=== PATIENT | male | born 1995 | race Two or more races ===

== ENCOUNTER 2016-03-29 01:59 | Emergency (ER) | payer OTHER ==
[2016-03-29 02:07] VITALS: TEMP 98.4
--- NOTE | 2016-03-29 02:14 | EDPHY ---
H & P Stated Complaint: rectal pain Time Seen by Provider: 03/29/16 02:11 HPI/ROS: HPI The patient presents with rectal pain which has been present throughout the course of the day, however woke him from sleep tonight. The pain began after having a hard small bowel movement this morning. It is described as a throbbing sensation without any radiation. It has been constant. He does not have any rectal bleeding. He has a history of an anal fissure which was treated in [facility], initially with some sort of ointment and then with what sounds like a sphincterotomy a year and half ago. He has not had any recurrence of his symptoms. REVIEW OF SYSTEMS Constitutional: No fever, no chills. Gastrointestinal: No abdominal pain, no vomiting. Genitourinary: No hematuria. Musculoskeletal: No back pain. Skin: No rashes. Neurological: No headache. PMHx: History of anal fissure Soc Hx: College student, from [facility] PHYSICAL General Appearance: Alert, no distress Eyes: Pupils equal and round no pallor or injection ENT, Mouth: Mucous membranes moist Respiratory: Breathing comfortably Cardiovascular: Regular rate and rhythm Gastrointestinal: Abdomen is soft and non-tender, no masses, bowel sounds normal Rectal: External hemorrhoids are palpable with no obvious fissure, however severe pain during rectal exam Neurological: A&O, moves all extremities Skin: Warm and dry, no rashes Musculoskeletal: Neck is supple non tender Extremities: symmetrical, full range of motion Psychiatric: Patient is oriented X 3, there is no agitation Source: Patient Exam Limitations: No limitations - Personal History Current Tetanus Diphtheria and Acellular Pertussis (TDAP): Yes - Medical/Surgical History Hx Asthma: Yes Hx Chronic Respiratory Disease: No Hx Diabetes: No Hx Cardiac Disease: No Hx Renal Disease: No Hx Cirrhosis: No Hx Alcoholism: No Hx HIV/AIDS: No Hx Splenectomy or Spleen Trauma: No Other PMH: Anal fissure, Asthma - Social History Smoking Status: Light smoker Constitutional: Initial Vital Signs Temperature (C) 36.9 C 03/29/16 02:03 Heart Rate 87 03/29/16 02:03 Respiratory Rate 20 03/29/16 02:03 Blood Pressure 89/43 L 03/29/16 02:03 O2 Sat (%) 92 03/29/16 02:03 O2 Delivery Mode Room Air Allergies/Adverse Reactions: No Known Allergies Allergy (Unverified 03/29/16 02:02) Home Medications: Medication Instructions Recorded Amoxicillin/Clavulanate Pot 875 mg PO BID 10 Days 08/01/13 [Augmentin 875 mg tab] Hydrocodone/APAP 5/325 [[place] 1 - 2 tab PO Q4 #13 tab 08/01/13 5/325 (RX)] Acetaminophen [Tylenol ES 500 mg 500 mg PO Q6 PRN #30 tab 03/29/16 (*)] Nitroglycerin [Nitro-Bid 2% Tube 0.2 applic RC BID #1 ointtube 03/29/16 (*)] Medical Decision Making Differential Diagnosis: This is a 20-year-old male with history of anal fissure status post sphincterotomy who presents from home with severe rectal pain after a hard bowel movement this morning. On exam, he is very tender on rectal exam with external hemorrhoids. He does not have any areas of fluctuance of his rectum. Differential diagnosis includes anal fissure, external hemorrhoids, thrombosed hemorrhoid, doubt perirectal abscess given no areas of fluctuance. In the emergency room the patient was given fentanyl for pain and to facilitate rectal exam. He will be discharged with a prescription for nitroglycerin ointment. I have instructed him on doing Sitz baths in eating a high-fiber diet. I have given him follow-up for the general surgeon on-call. - Data Points Medications Given: Discontinued Medications Fentanyl (Sublimaze) 50 mcg IVP EDNOW ONE Stop: 03/29/16 02:35 Last Admin: 03/29/16 02:44 Dose: 50 mcg Departure - Departure Disposition: Home, Routine, Self-Care Clinical Impression: Anal fissure, Hemorrhoids Condition: Good Instructions: Anal Fissure (ED), High Fiber Diet (ED) Additional Instructions: You should try a diet high in fiber as well as taking baths and warm water to help with your pain. You can call the surgeon below to schedule a follow-up appointment if your pain continues. Referrals: Deven Peña MD [Medical Doctor] - As per Instructions Prescriptions: Nitroglycerin [Nitro-Bid 2% Tube (*)] 0.2 applic RC BID #1 ointtube Acetaminophen [Tylenol ES 500 mg (*)] 500 mg PO Q6 PRN #30 tab PRN Reason: Pain, Breakthrough
[2016-03-29] MEDS ORDERED: fentaNYL 100 MCG/2 ML INJ IVP ONE (02:34)
[2016-03-29 03:20] VITALS: BP 100/64; PULSE 74; RESP 16; O2SAT 97
== END 2016-03-29 03:20 | disposition home or self-care (01) ==
DX: K60.2 Anal fissure, unspecified (principal); K64.9 Unspecified hemorrhoids; J45.909 Unspecified asthma, uncomplicated; F17.200 Nicotine dependence, unspecified, uncomplicated
CPT/HCPCS: 96374; J3010